=== PATIENT | female | born 1975 | race African-American/Black ===

== ENCOUNTER 2019-06-25 12:19 | Emergency (ER) | payer OTHER ==
[~2019-06-25] VITALS: Ht 157.5 cm; Wt 97.7 kg
[2019-06-25 12:44] VITALS: Ht 157.5 cm; Wt 97.7 kg
[2019-06-25] MEDS ORDERED: SYNTHROID125 MCG PO (12:47)
[2019-06-25] MEDS ORDERED: ROBAXIN500 MG PO (15:00)
[2019-06-25] MEDS ORDERED: TORADOL10 MG PO (15:00)
[2019-06-25 15:38] VITALS: BP 125/73
== END 2019-06-25 15:39 | disposition home or self-care (01) ==
LOC: D.ER 12:19
DX: S83.91XA Sprain of unspecified site of right knee, initial encounter (principal); W10.9XXA Fall (on) (from) unspecified stairs and steps, initial encounter